=== PATIENT | female | born 1985 | race Two or more races ===

== ENCOUNTER 2016-04-09 08:00 | Inpatient (IN) | payer BC ==
[2016-04-09] VITALS (7 sets, daily range): BP systolic 106–121; BP diastolic 55–78
[~2016-04-09] VITALS: Ht 157.5 cm; Wt 119.3 kg
[2016-04-09] MEDS: LACTATED RINGER'S 1,000 ML IV SCH ×2 (08:51→16:30)
[2016-04-09 09:50] LABS: Basophils # (auto) 0.1 uL; Basophils % (auto) 0.5 % (0.0-2.0); Eosinophils # (auto) 0 uL; Eosinophils % (auto) 0.4 % (0.0-7.0); Hematocrit 38.3 % (36.0-46.0); Hemoglobin 12.7 g/dL (12.2-16.2); Lymphocytes # (auto) 1.8 uL; Lymphocytes % (auto) 17.5 % (10.0-50.0); Mean Corpuscular Hemoglobin 28.9 pg (28.0-32.0); Mean Corpuscular Hgb Conc. 33.2 g/dL (32.0-36.0); Mean Platelet Volume 9.9 fL (7.4-10.4); Monocytes # (auto) 0.5 uL; Monocytes % (auto) 4.8 % (0.0-12.0); Neutrophils # (auto) 7.7 uL; Neutrophils % (auto) 76.8 % (37.0-80.0); Platelet Count (auto) 240 10^3/uL (140-450); Red Cell Distribution Width 15.6 % (11.6-16.0)
[2016-04-09 09:53] LABS: INR 0.99 (0.9-1.15); Partial Thromboplastin Time 27.4 sec (22.64-33.71); Prothrombin Time 10.2 sec (9.37-12.3)
[2016-04-09 09:58] LABS: Urine Bilirubin Negative (Negative); Urine Blood Negative /uL (Negative); Urine Color Yellow (Yellow); Urine Glucose Normal (Normal); Urine Ketone Negative (Negative); Urine Nitrite Negative (Negative); Urine RBC 1 /hpf (0 - 4); Urine Squamous Epithelial Cell FEW /hpf (<5); Urine Urobilinogen Normal (Negative)
[2016-04-09 10:25] LABS: Albumin 2.5 g/dL (3.4-5.0); BUN/Creatinine Ratio 18.2; Bilirubin, Total 0.2 mg/dL (0.2-1.0); Calcium 8.5 mg/dL (8.5-10.1); Potassium 3.7 mmol/L (3.5-5.1); Total Protein 6.3 g/dL (6.4-8.2)
[2016-04-09] MEDS ORDERED: SUCCINYLCHOLINE CHLORIDE 20 MG/ML 10ML VIAL IV ONE (11:34)
[2016-04-09] MEDS ORDERED: TETRACAINE 1% INJ 2 ML VIAL IJ ONE (11:34)
[2016-04-09] MEDS ORDERED: MORPHINE SULF(PF) 0.5MG/ML 10ML VIAL ONE (11:37)
[2016-04-09] MEDS ORDERED: fentaNYL CITRATE 100 MCG/2 ML VL ONE (11:37)
[2016-04-09] MEDS ORDERED: MIDAZOLAM HCL 1MG/1ML-2 ML VIAL ONE (11:38)
[2016-04-09] MEDS ORDERED: ePHEDrine SULFATE 50 MG/ML AMP ONE (11:38)
[2016-04-09] MEDS ORDERED: ceFAZolin 1GM VL ONE (11:38)
[2016-04-09] MEDS ORDERED: OXYTOCIN 10 UNIT/ML 10ML VIAL ONE (11:38)
[2016-04-09] MEDS ORDERED: ONDANSETRON HCL 4 MG/2 ML VIAL IV PRN (13:00)
[2016-04-09] MEDS ORDERED: HYDROmorphone HCL 2 MG/ML VL IV PRN ×2 (13:00→15:30)
[2016-04-09] MEDS ORDERED: KETOROLAC TROMETH 30 MG/ML 1ML VIAL IV PRN (13:00)
[2016-04-09] MEDS ORDERED: MORPHINE SULF INJ 2 MG/ML SYRINGE 1ML IV PRN (13:00)
[2016-04-09] MEDS ORDERED: LACT. RINGERS/OXYTOCIN 20UNITS 1,000 ML IV SCH (13:00)
[2016-04-09] MEDS ORDERED: PROMETHAZINE HCL 25 MG/ML 1ML IM ONE (15:30)
[2016-04-09] MEDS ORDERED: KETOROLAC TROMETH 30 MG/ML 1ML VIAL IV ONE (15:30)
[2016-04-09] MEDS ORDERED: NALOXONE HCL 0.4 MG/ML VIAL IV PRN ×2 (15:30)
[2016-04-09] MEDS ORDERED: PREN-96 PO (17:15)
[2016-04-09 21:16] LABS: Basophils # (auto) 0 uL; Eosinophils # (auto) 0 uL; Lymphocytes # (auto) 1.2 uL; Lymphocytes % (auto) 7.7 % (10.0-50.0); Mean Corpuscular Hemoglobin 28.5 pg (28.0-32.0); Mean Corpuscular Hgb Conc. 32.6 g/dL (32.0-36.0); Mean Corpuscular Volume 87.7 fL (80.0-100.0); Mean Platelet Volume 9.5 fL (7.4-10.4); Monocytes # (auto) 0.4 uL; Monocytes % (auto) 2.5 % (0.0-12.0); Neutrophils # (auto) 14.3 uL; Neutrophils % (auto) 89.8 % (37.0-80.0); Platelet Count (auto) 243 10^3/uL (140-450); Red Cell Distribution Width 15.4 % (11.6-16.0); White Blood Cell 15.9 10^3/uL (4.4-10.8)
[2016-04-09] MEDS: ceFAZolin 1GM/50ML D5W 50 ML IV SCH (21:34)
[2016-04-10] VITALS (7 sets, daily range): BP systolic 100–125; BP diastolic 57–86
[2016-04-10] MEDS: ceFAZolin 1GM/50ML D5W 50 ML IV SCH ×2 (05:30→13:19)
[2016-04-10] MEDS: LACTATED RINGER'S 1,000 ML IV SCH ×3 (05:30→16:32)
[2016-04-10 06:18] LABS: Basophils # (auto) 0 uL; Basophils % (auto) 0.4 % (0.0-2.0); Eosinophils # (auto) 0 uL; Eosinophils % (auto) 0.1 % (0.0-7.0); Hematocrit 35.1 % (36.0-46.0); Hemoglobin 11.5 g/dL (12.2-16.2); Lymphocytes # (auto) 1.5 uL; Lymphocytes % (auto) 12.2 % (10.0-50.0); Mean Corpuscular Hemoglobin 28.7 pg (28.0-32.0); Mean Corpuscular Hgb Conc. 32.7 g/dL (32.0-36.0); Mean Corpuscular Volume 87.6 fL (80.0-100.0); Mean Platelet Volume 9.6 fL (7.4-10.4); Monocytes # (auto) 0.6 uL; Monocytes % (auto) 4.7 % (0.0-12.0); Neutrophils # (auto) 10.4 uL; Neutrophils % (auto) 82.6 % (37.0-80.0); Platelet Count (auto) 225 10^3/uL (140-450); White Blood Cell 12.6 10^3/uL (4.4-10.8)
[2016-04-10] MEDS ORDERED: SIMETHICONE 80 MG CHEWABLE TABLET PO PRN (07:45)
[2016-04-10] MEDS ORDERED: HYDROcodone-ACET 5/325MG TAB PO PRN ×2 (09:45)
[2016-04-10] MEDS: DOCUSATE SOD 100 MG CAP PO SCH ×2 (09:51→21:45)
[2016-04-10] MEDS: IBUPROFEN 800 MG TAB PO PRN (20:05)
[2016-04-11 03:21] VITALS: BP 105/70
[2016-04-11] MEDS: IBUPROFEN 800 MG TAB PO PRN ×3 (05:14→21:32)
[2016-04-11 06:45] VITALS: BP_SYST 111; BP_SYST 114; BP_DIAS 61; BP_DIAS 78
[2016-04-11] MEDS: DOCUSATE SOD 100 MG CAP PO SCH ×2 (10:55→21:31)
[2016-04-11 11:40] VITALS: BP 115/80
[2016-04-11 15:49] VITALS: BP 111/64
[2016-04-11 18:50] VITALS: BP 119/72
[2016-04-11 23:22] VITALS: BP 107/61
[2016-04-12 03:05] VITALS: BP 112/68
[2016-04-12] MEDS: IBUPROFEN 800 MG TAB PO PRN (07:48)
[2016-04-12 08:00] VITALS: BP 115/85
== END 2016-04-12 09:50 | disposition home or self-care (01) | DRG 765 ==
LOC: LDRP 08:00
PROVIDERS: ADMIT Obstetrics & Gynecology; ATTEND Obstetrics & Gynecology
PROC: 10D00Z1 Extraction of Products of Conception, Low, Open Approach (ICD-10-PCS; principal; 2016-04-09 12:04)
DX: O34.211 Maternal care for low transverse scar from previous cesarean delivery (principal); Z68.42 Body mass index [BMI] 45.0-49.9, adult; O99.214 Obesity complicating childbirth; E66.01 Morbid (severe) obesity due to excess calories; Z37.0 Single live birth; Z3A.39 39 weeks gestation of pregnancy
CPT/HCPCS: 36415; 59025; 80053; 81001; 81002; 85025; 85610; 85730; 86850; 86900; 86901; 88307; 94762; 96365; J0330; J0690; J2250; J2590

== ENCOUNTER → 2016-09-14 | Outpatient (CLI) | payer BC ==
[~2016-09-14] MED LIST: PREN-96 PO
[2016-09-14 08:14] LABS: Basophils # (auto) 0 uL; Basophils % (auto) 0.5 % (0.0-2.0); CONDITION AutoValidated; Eosinophils # (auto) 0.1 uL; Eosinophils % (auto) 1.2 % (0.0-7.0); Hematocrit 42.3 % (36.0-46.0); Hemoglobin 14.1 g/dL (12.2-16.2); Lymphocytes % (auto) 23.4 % (10.0-50.0); Mean Corpuscular Hemoglobin 28.8 pg (28.0-32.0); Mean Corpuscular Hgb Conc. 33.4 g/dL (32.0-36.0); Mean Corpuscular Volume 86.4 fL (80.0-100.0); Mean Platelet Volume 9.5 fL (7.4-10.4); Monocytes # (auto) 0.5 uL; Monocytes % (auto) 5.7 % (0.0-12.0); Neutrophils # (auto) 5.8 uL; Neutrophils % (auto) 69.2 % (37.0-80.0); Platelet Count (auto) 309 10^3/uL (140-450); Red Cell Distribution Width 14.5 % (11.6-16.0); White Blood Cell 8.4 10^3/uL (4.4-10.8)
[2016-09-14 08:37] LABS: Urine Bilirubin Negative (Negative); Urine Color PINK (Yellow); Urine Glucose Normal (Normal); Urine Ketone Negative (Negative); Urine Nitrite Negative (Negative); Urine RBC 498 /hpf (0 - 4); Urine Squamous Epithelial Cell MOD /hpf (<5); Urine Urobilinogen Normal (Negative); Urine pH 6.5 (5.0-8.0)
[2016-09-14 08:38] LABS: Urine Blood 3+ /uL (Negative)
[2016-09-14 09:15] LABS: Albumin 3.4 g/dL (3.4-5.0); BUN/Creatinine Ratio 23.3; Bilirubin, Total 0.4 mg/dL (0.2-1.0); Calcium 8.8 mg/dL (8.5-10.1); Potassium 4.1 mmol/L (3.5-5.1); Total Protein 7.2 g/dL (6.4-8.2)
== END | disposition home or self-care (01) ==
LOC: LAB 07:38
PROVIDERS: ATTEND Family Medicine
DX: F53 Mental and behavioral disorders associated with the puerperium, not elsewhere classified (principal); Z00.00 Encounter for general adult medical examination without abnormal findings
CPT/HCPCS: 36415; 80053; 80061; 81001; 83036; 84443; 85025